=== PATIENT | male | born 2000 | race African-American/Black ===

== ENCOUNTER 2020-09-18 12:18 | Emergency (ER) | payer OTHER ==
[2020-09-18 12:32] VITALS: BP 151/77
--- NOTE | 2020-09-18 13:39 | ED Physician Documentation ---
History of Present Illness - Stated complaint Stated Complaint: RIGHT SHOULDER PX - Chief complaint Chief Complaint: Ext Problem - History obtained from History obtained from: Patient - Additonal information Additional information: Pt comes to the ED c/o R shoulder pain for the past couple of days. He denies a specific injury, though he does note that he works out avidly, and did an upper body/shoulder workout shortly before onset of sx. Pt suspects this is the cause of sx. He denies doing much physical labor in his job in the [employer]. No numbness or tingling or weakness. No other complaints. Review of Systems Ten Systems: 10 systems reviewed and negative Constitutional: reports: Reviewed and negative Eyes: reports: Reviewed and negative Ears: reports: Reviewed and negative Nose: reports: Reviewed and negative Throat: reports: Reviewed and negative Cardiac: reports: Reviewed and negative Respiratory: reports: Reviewed and negative GI: reports: Reviewed and negative : reports: Reviewed and negative Skin: reports: Reviewed and negative Musculoskeletal: reports: Joint pain. denies: Extremity swelling Neurologic: reports: Reviewed and negative Psychiatric: reports: Reviewed and negative Endocrine: reports: Reviewed and negative Immunocompromised: reports: Reviewed and negative PD PAST MEDICAL HISTORY - Present Medications Home Medications: Ambulatory Orders Medication Instructions Recorded Confirmed Thermogenic 09/18/20 - Allergies Allergies/Adverse Reactions: Allergies Allergy/AdvReac Type Severity Reaction Status Date / Time No Known Drug Allergies Allergy Verified 09/18/20 12:32 PD ED PE NORMAL - Vitals Vital signs reviewed: Yes - General General: Alert and oriented X 3, No acute distress - HEENT HEENT: Atraumatic, PERRL, EOMI, Moist mucous membranes - Neck Neck: Supple, no meningeal sign - Cardiac Cardiac: Strong equal pulses - Respiratory Respiratory: No respiratory distress - Derm Derm: Normal color, Warm and dry, No rash - Extremities Extremities: No deformity, Other (Minimal tenderness anterior and lateral shoulder, though pt notes this is the area of pain, just deeper. Pt can fully abduct, but c/o a "catching" pain beyond 90 deg. No clicking appreciated. No swelling. Remainder of RUE normal.) - Neuro Neuro: Alert and oriented X 3, No motor deficit, No sensory deficit - Psych Psych: Normal mood, Normal affect Results - Vitals Vitals: Oxygen O2 Source Room air PD MEDICAL DECISION MAKING - ED course Complexity details: reviewed results, re-evaluated patient, considered differential, d/w patient ED course: XR of R shoulder was ordered from triage, and benign. I d/w pt that his sx sound suspicious for impingement, likely from overuse injury related to his shoulder workouts. I have advised the pt to either take a week or two off of lifting, or at very least, to decrease the weight that shoulder has to lift during workouts significantly until pt is feeling better. I have advised the pt to take ibuprofen and Tylenol, if needed. We have discussed that pt may need MRI if not doing better after a couple of weeks. [place]. Departure - Departure Disposition: 01 Home, Self Care Clinical Impression: Shoulder impingement Qualifiers: Laterality: right Qualified Code(s): M75.41 - Impingement syndrome of right shoulder Condition: Stable Instructions: Impingement Syndrome Comments: Ibuprofen to help with the pain and you can use ice to help with inflammation, as well. Please talk to your primary doctor about whether or not an MRI can be performed to further evaluate your shoulder pain. Discharge Date/Time: 09/18/20 13:50
--- NOTE | 2020-09-18 13:47 | XRAY Report ---
PROCEDURE: Shoulder 3 View RT INDICATIONS: R shoulder pain TECHNIQUE: 3 views of the shoulder were acquired. COMPARISON: None. FINDINGS: Bones: No fractures or dislocations. No widening of the AC joint. No suspicious bony lesions. Visu alized ribs appear intact. Soft tissues: No suspicious soft tissue calcifications. IMPRESSION: No acute osseous abnormality. If clinically indicated consider further evaluation with MRI of the shoulder. Reviewed by: Moi James MD on 09/18/2020 12:45 PM [facility] Approved by: Moi James MD on 09/18/2020 12:45 PM [facility] Station ID: [id number]
== END 2020-09-18 13:50 | disposition home or self-care (01) ==
LOC: ED 12:18
DX: M75.41 Impingement syndrome of right shoulder (principal)
CPT/HCPCS: 99282; 99283

== ENCOUNTER 2021-07-10 10:27 | Outpatient (CLI) | payer OTHER ==
--- NOTE | 2021-07-11 09:09 | MRI Report ---
PROCEDURE: Shoulder RT W/O INDICATIONS: BILATERAL BICEPS TENDONITIS TECHNIQUE: Noncontrast oblique coronal T2 fast spin echo with fat saturation, oblique sagittal T1 spin echo and T2 fast spin echo with fat saturation, axial T1 spin echo and T2 fast spin echo with fat saturation t hrough the shoulder. COMPARISON: None. Findings: Supraspinatus: Minimal thinning with evidence of interstitial tear and tendinopathy. Infraspinatus: Mild tendinopathy without evidence of tear. Subscapularis: Minimal indistinct, compatible with tendinopathy. Teres minor: No evidence of tear. Labrum: No evidence of tear. Biceps tendon: No evidence of subluxation or tear. Acromioclavicular joint: Normal alignment. Mild arthrosis. Muscle: No significant atrophy. Bones: 2.1 cm T2 hyperintense/T1 hypointense lesion is seen in the humeral head, which is nonspecific . The overlying cortex appears maintained. Miscellaneous: No significant glenohumeral joint effusion. No subscapularis or subcoracoid bursitis. No intra-articular bodies. Intact coracoclavicular ligament. IMPRESSION: 1. Mild degenerative changes of the supraspinatous, infraspinatus and subscapularis tendons. 2. Mild arthrosis of the AC joint. 3. Abnormal signal in the humeral head as detailed above, which may reflect a chondroid lesion in the absence of trauma. CT imaging may be helpful for further characterization. Reviewed by: Yobani Argueta MD on 07/10/2021 2:37 PM PDT Approved by: Yobani Argueta MD on 07/10/2021 2:37 PM PDT Station ID: [id number]
== END 2021-07-10 10:28 | disposition home or self-care (01) ==
LOC: DI 10:27
DX: M19.011 Primary osteoarthritis, right shoulder (principal)

== ENCOUNTER 2021-08-24 07:30 | Outpatient (CLI) | payer OTHER ==
--- NOTE | 2021-08-24 16:29 | XRAY Report ---
PROCEDURE: Shoulder 3 View RT INDICATIONS: RIGHT SHOULDER PAIN TECHNIQUE: 4 views of the shoulder were acquired. COMPARISON: 09/18/2020 FINDINGS: Bones: No fractures or dislocations. No suspicious bony lesions. Visualized ribs appear intact. Soft tissues: No suspicious soft tissue calcifications. IMPRESSION: Unremarkable right shoulder radiographs Reviewed by: Conor Grossman MD on 08/24/2021 3:27 PM [place] Approved by: Conor Grossman MD on 08/24/2021 3:27 PM [place] Station ID: [id number]
== END 2021-08-24 23:59 | disposition home or self-care (01) ==
LOC: DI.N 07:30
PROVIDERS: ATTEND Physician Assistant
DX: M25.511 Pain in right shoulder (principal)